=== PATIENT | female | born 1975 | race Hispanic/Latino ===

== ENCOUNTER 2019-03-05 16:48 | Emergency (ER) | payer OTHER ==
[2019-03-05] MEDS ORDERED: SILVER SULFADIAZINE CREAM 50 GM TP ONE (17:21)
[2019-03-05] MEDS ORDERED: IBUPROFEN 600 MG TABLET ONE (17:21)
== END 2019-03-05 17:38 | disposition home or self-care (01) ==
LOC: EDH 16:48
DX: T22.111A Burn of first degree of right forearm, initial encounter (principal); T23.191A Burn of first degree of multiple sites of right wrist and hand, initial encounter; E11.9 Type 2 diabetes mellitus without complications; Z90.49 Acquired absence of other specified parts of digestive tract; Z98.890 Other specified postprocedural states; T31.0 Burns involving less than 10% of body surface; X12.XXXA Contact with other hot fluids, initial encounter; Y93.89 Activity, other specified; Y92.89 Other specified places as the place of occurrence of the external cause; Y99.8 Other external cause status
CPT/HCPCS: 16000